=== PATIENT | female | born 1995 | race Two or more races ===

== ENCOUNTER 2022-02-04 19:19 | Outpatient (CLI) | payer OTHER ==
[~2022-02-04 19:19] MED LIST: ATABEX OB TABL1 EACH PO; MACROBID 100 M100 MG PO; PRENA1 TRUE CO1 EACH PO
== END 2022-02-05 09:10 | disposition home or self-care (01) ==
LOC: OBS/DEL 19:19
PROVIDERS: ATTEND Obstetrics & Gynecology
DX: O60.02 Preterm labor without delivery, second trimester (principal); Z3A.24 24 weeks gestation of pregnancy; Z91.013 Allergy to seafood; Z20.822 Contact with and (suspected) exposure to COVID-19

== ENCOUNTER 2022-02-17 00:58 | Outpatient (CLI) | payer OTHER | END 2022-02-17 11:25 | disposition home or self-care (01) | LOC: OBS/DEL 00:58 | PROVIDERS: ATTEND Obstetrics & Gynecology | DX: O26.892 Other specified pregnancy related conditions, second trimester (principal); Z3A.26 26 weeks gestation of pregnancy; Z91.013 Allergy to seafood ==

== ENCOUNTER 2022-03-27 13:39 | Outpatient (CLI) | payer OTHER | END 2022-03-27 15:00 | disposition home or self-care (01) | LOC: PRENATAL 13:39 | PROVIDERS: ATTEND Obstetrics & Gynecology Maternal & Fetal Medicine | DX: O26.849 Uterine size-date discrepancy, unspecified trimester (principal); O35.9XX0 Maternal care for (suspected) fetal abnormality and damage, unspecified, not applicable or unspecified; Z3A.32 32 weeks gestation of pregnancy ==

== ENCOUNTER → 2023-10-06 | Emergency (ER) | payer OTHER ==
[~2023-10-06] VITALS: Ht 154.9 cm; Wt 59.0 kg
[2023-10-06 16:56] LABS: HEMATOCRIT 38.6 % (36.0-45.00); HEMOGLOBIN 13.1 g/dL (12.0-15.00); MEAN CELL VOLUME 89.9 fL (80.00-100.00); MEAN CORPUSCULAR HEMOGLOBIN 30.6 pg (27.00-32.0); MEAN CORPUSCULAR HGB CONC 34.1 g/dl (32.0-36.0); PLATELET COUNT 342 K/uL (150-450); RED BLOOD COUNT 4.29 M/uL (4.00-6.00)
[2023-10-06 18:25] LABS: PH,URINE 6.5 (5.0-8.0); URINE APPEARANCE Clear; URINE BILIRRUBIN Negative (NEGATIVE); URINE BLOOD Large; URINE COLOR Yellow; URINE GLUCOSE Negative (NEGATIVE); URINE KETONE Negative (NEGATIVE); URINE LEUKOCYTE Trace; URINE NITRATE Negative; URINE PROTEIN Negative (NEGATIVE); URINE UROBILINOGEN 0.2 E.U./dl
[2023-10-06 18:26] LABS: URINE BACTERIA 259.4 uL (0.0-1933); URINE EPITHELIAL CELLS 26.1 uL (0.0-38.8); URINE RBC 64.7 uL (0.0-20.8); URINE WBC 4.1 uL (0.0-23.2)
== END | disposition home or self-care (01) ==
LOC: ER 15:36
PROVIDERS: General Practice
DX: O20.9 Hemorrhage in early pregnancy, unspecified (principal); Z3A.01 Less than 8 weeks gestation of pregnancy; Z91.013 Allergy to seafood; Z87.09 Personal history of other diseases of the respiratory system

== ENCOUNTER 2024-06-29 20:03 | Emergency (ER) | payer OTHER ==
[~2024-06-29] VITALS: Ht 154.9 cm; Wt 63.5 kg
[2024-06-29 21:16] LABS: HEMATOCRIT 33.7 % (36.0-45.00); HEMOGLOBIN 11.6 g/dL (12.0-15.00); MEAN CELL VOLUME 88.1 fL (80.00-100.00); MEAN CORPUSCULAR HEMOGLOBIN 30.4 pg (27.00-32.0); MEAN CORPUSCULAR HGB CONC 34.6 g/dl (32.0-36.0); PLATELET COUNT 312 K/uL (150-450); RED BLOOD COUNT 3.82 M/uL (4.00-6.00); RED CELL DISTRIBUTION WIDTH 13.8 % (11.5-14.5)
[2024-06-29 22:19] LABS: URINE APPEARANCE Clear; URINE BILIRRUBIN Negative (NEGATIVE); URINE BLOOD Small; URINE COLOR Yellow; URINE GLUCOSE Negative (NEGATIVE); URINE KETONE Negative (NEGATIVE); URINE LEUKOCYTE Negative; URINE NITRATE Negative; URINE PROTEIN Negative (NEGATIVE); URINE UROBILINOGEN 0.2 E.U./dl
[2024-06-29 22:31] LABS: URINE RBC 2.2 uL (0.0-20.8)
[2024-06-29 22:32] LABS: URINE BACTERIA 114.9 uL (0.0-1933); URINE EPITHELIAL CELLS 3.4 uL (0.0-38.8); URINE WBC 1.2 uL (0.0-23.2)
== END 2024-06-29 22:45 | disposition home or self-care (01) ==
LOC: ER 20:04
PROVIDERS: General Practice
DX: O20.8 Other hemorrhage in early pregnancy (principal); Z91.013 Allergy to seafood; Z3A.10 10 weeks gestation of pregnancy

== ENCOUNTER 2024-07-15 08:12 | Outpatient (CLI) | payer OTHER | END 2024-07-15 08:16 | disposition home or self-care (01) | LOC: PRENATAL 08:12 | PROVIDERS: ATTEND Obstetrics & Gynecology Maternal & Fetal Medicine | DX: O36.80X0 Pregnancy with inconclusive fetal viability, not applicable or unspecified (principal); Z36.82 Encounter for antenatal screening for nuchal translucency; O34.219 Maternal care for unspecified type scar from previous cesarean delivery; Z14.8 Genetic carrier of other disease; Z3A.13 13 weeks gestation of pregnancy ==

== ENCOUNTER 2024-07-26 12:02 | Emergency (ER) | payer OTHER ==
[~2024-07-26] VITALS: Ht 154.9 cm; Wt 63.0 kg
[2024-07-26] MEDS ORDERED: PRENATAL + DHA1 EAC1 (13:27)
[2024-07-26] MEDS ORDERED: KETOROLAC TROMETHAMINE 60 MG VIAL IM STA (14:22)
[2024-07-26] MEDS ORDERED: KETOROLAC TROMETHAMINE 60 MG VIAL IM ONE (15:06)
[2024-07-26 15:37] LABS: BASO % 0.3 % (0.1-1.2); EOS # 0.18 (0.04-0.54); HEMATOCRIT 32.8 % (34.1-44.9); LYMPH # 1.57 (1.18-3.74); LYMPH % 17.2 % (19.3-53.1); MEAN CORPUSCULAR HEMOGLOBIN 29.3 pg (25.6-32.2); MONO # 0.39 (0.24-0.82); MONO % 4.3 % (4.7-12.5); NEUT # 6.95 (1.56-6.13); PLATELET COUNT 307 K/uL (163-369); RED BLOOD COUNT 3.75 M/uL (3.93-5.22)
[2024-07-26 15:38] LABS: PH,URINE 6.5 (5.0-8.0); URINE APPEARANCE Clear; URINE BILIRRUBIN Negative (NEGATIVE); URINE BLOOD Negative; URINE COLOR Yellow; URINE GLUCOSE Negative (NEGATIVE); URINE KETONE Negative (NEGATIVE); URINE LEUKOCYTE Negative; URINE NITRATE Negative; URINE PROTEIN Negative (NEGATIVE); URINE UROBILINOGEN 0.2 E.U./dl
[2024-07-26 15:41] LABS: URINE BACTERIA 167.5 uL (0.0-1933); URINE EPITHELIAL CELLS 9.2 uL (0.0-38.8)
[2024-07-26 15:44] LABS: URINE RBC 0.2 uL (0.0-20.8); URINE WBC 0.3 uL (0.0-23.2)
[2024-07-26 15:59] LABS: POTASSIUM 3.62 mEq/L (3.5-5.1)
[2024-07-26 16:23] LABS: CALCIUM 8.6 mg/dL (8.5-10.1); CREATININE SERUM 0.35 mg/dL (0.55-1.02); GFR 217.19
== END 2024-07-26 17:20 | disposition home or self-care (01) ==
LOC: ER 12:02
PROVIDERS: General Practice
DX: O23.32 Infections of other parts of urinary tract in pregnancy, second trimester (principal); Z3A.14 14 weeks gestation of pregnancy; N39.0 Urinary tract infection, site not specified; Z91.013 Allergy to seafood

== ENCOUNTER → 2024-08-31 08:45 | Outpatient (CLI) | payer OTHER ==
[~2024-08-31 08:45] MED LIST changes: +PRENATAL + DHA1 EAC1
== END | disposition home or self-care (01) ==
LOC: PRENATAL 08:45
PROVIDERS: ATTEND Obstetrics & Gynecology Maternal & Fetal Medicine
DX: O44.00 Complete placenta previa NOS or without hemorrhage, unspecified trimester (principal); Z3A.20 20 weeks gestation of pregnancy

== ENCOUNTER → 2024-11-25 09:17 | Outpatient (CLI) | payer OTHER | END | disposition home or self-care (01) | LOC: PRENATAL 09:17 | PROVIDERS: ATTEND Obstetrics & Gynecology Maternal & Fetal Medicine | DX: O26.849 Uterine size-date discrepancy, unspecified trimester (principal); O36.8130 Decreased fetal movements, third trimester, not applicable or unspecified; O34.219 Maternal care for unspecified type scar from previous cesarean delivery; Z3A.34 34 weeks gestation of pregnancy ==

== ENCOUNTER 2024-12-30 08:49 | Inpatient (IN) | payer OTHER ==
[~2024-12-30] VITALS: Ht 154.9 cm; Wt 3.6 kg
[2024-12-30 09:22] LABS: BASO % 0.4 % (0.1-1.2); EOS # 0.14 (0.04-0.54); EOS % 2.0 % (0.7-7.0); LYMPH # 1.50 (1.18-3.74); LYMPH % 21.6 % (19.3-53.1); MEAN PLATELET VOLUME 10.90 fl (9.4-12.4); MONO # 0.42 (0.24-0.82); MONO % 6.0 % (4.7-12.5); NEUT # 4.85 (1.56-6.13); NEUT % 69.7 % (34.0-71.1); RED CELL DISTRIBUTION WIDTH 11.9 % (11.6-14.4)
[2024-12-30 09:47] LABS: URINE APPEARANCE Clear; URINE BILIRRUBIN Negative (NEGATIVE); URINE BLOOD Negative; URINE COLOR Yellow; URINE GLUCOSE Negative (NEGATIVE); URINE KETONE Negative (NEGATIVE); URINE LEUKOCYTE Trace; URINE NITRATE Negative; URINE PROTEIN Negative (NEGATIVE); URINE UROBILINOGEN 0.2 E.U./dl
[2024-12-30 09:53] LABS: URINE BACTERIA 333.5 uL (0.0-1933); URINE EPITHELIAL CELLS 33.6 uL (0.0-38.8); URINE RBC 2.0 uL (0.0-20.8); URINE WBC 7.2 uL (0.0-23.2)
[2024-12-30 09:56] LABS: INR < 0.93
[2024-12-30 10:05] LABS: URINE CAST 0.00 uL (0.0-1.40)
[2024-12-30 10:24] LABS: ALT/SGPT 26.0 U/L (12-78); AST/SGOT 25.0 U/L (15-37); BILIRUBIN TOTAL 0.35 mg/dL (0.3-1.2); BUN CREA RATIO 15.0 (7.0-25.0); CREATININE SERUM 0.4 mg/dL (0.55-1.02); GFR 186.17; GLOBULINA 3.4 G/DL (2.4-3.5); GLUCOSE FASTING 69.0 mg/dL (65-100); OSMOLALITY SERUM 275.0 MOSM/KG (275-295)
[2025-01-13 09:23] VITALS: BP 119/72
[2025-01-13] MEDS ORDERED: CEFAZOLIN SODIUM 1,000 MG VIAL ONE (09:48)
[2025-01-13 10:04] LABS: BASO % 0.5 % (0.1-1.2); EOS # 0.15 (0.04-0.54); EOS % 2.4 % (0.7-7.0); LYMPH # 1.34 (1.18-3.74); LYMPH % 21.2 % (19.3-53.1); MEAN PLATELET VOLUME 11.00 fl (9.4-12.4); MONO # 0.39 (0.24-0.82); MONO % 6.2 % (4.7-12.5); NEUT # 4.37 (1.56-6.13); NEUT % 69.2 % (34.0-71.1); RED CELL DISTRIBUTION WIDTH 11.9 % (11.6-14.4)
[2025-01-13 10:05] LABS: URINE APPEARANCE Clear; URINE BILIRRUBIN Negative (NEGATIVE); URINE BLOOD Negative; URINE COLOR Dark Yellow; URINE GLUCOSE Negative (NEGATIVE); URINE KETONE Trace (NEGATIVE); URINE LEUKOCYTE Negative; URINE NITRATE Negative; URINE PROTEIN Trace (NEGATIVE); URINE UROBILINOGEN 0.2 E.U./dl
[2025-01-13 10:06] LABS: URINE BACTERIA 634.7 uL (0.0-1933); URINE EPITHELIAL CELLS 20.4 uL (0.0-38.8); URINE RBC 2.1 uL (0.0-20.8); URINE WBC 8.1 uL (0.0-23.2)
[2025-01-13 10:20] LABS: URINE CAST 0.00 uL (0.0-1.40)
[2025-01-13 10:36] LABS: INR < 0.93
[2025-01-13 10:43] LABS: ALT/SGPT 25.0 U/L (12-78); AST/SGOT 23.0 U/L (15-37); BILIRUBIN TOTAL 0.29 mg/dL (0.3-1.2); BUN CREA RATIO 13.0 (7.0-25.0); CREATININE SERUM 0.45 mg/dL (0.55-1.02); GFR 162.51; GLOBULINA 3.3 G/DL (2.4-3.5); GLUCOSE FASTING 74.0 mg/dL (65-100); OSMOLALITY SERUM 276.0 MOSM/KG (275-295)
[2025-01-13] MEDS ORDERED: CEFAZOLIN SODIUM 1,000 MG VIAL IV SCH (12:45)
[2025-01-13] MEDS ORDERED: RINGERS SOLUTION,LACTATED 1,000 ML IV SCH ×2 (12:45→18:00)
[2025-01-13 15:20] VITALS: BP 111/70
[2025-01-13] MEDS ORDERED: ERYTHROMYCIN BASE OPHT 1GM EACH TUBE OP ONE (15:54)
[2025-01-13] MEDS ORDERED: OXYTOCIN 10 UNITS/ML VIAL ONE ×2 (15:54→19:22)
[2025-01-13] MEDS ORDERED: MORPHINE SULFATE 4 MG/ML VIAL IV PRN (17:45)
[2025-01-13] MEDS ORDERED: SIMETHICONE 125 MG CAPSULE PO SCH (18:00)
[2025-01-13] MEDS ORDERED: OXYTOCIN 1,000 ML IV SCH (18:00)
[2025-01-13 21:09] LABS: BASO % 0.2 % (0.1-1.2); EOS # 0.04 (0.04-0.54); EOS % 0.3 % (0.7-7.0); LYMPH # 1.10 (1.18-3.74); LYMPH % 7.9 % (19.3-53.1); MEAN PLATELET VOLUME 11.20 fl (9.4-12.4); MONO # 0.63 (0.24-0.82); MONO % 4.5 % (4.7-12.5); NEUT # 12.05 (1.56-6.13); NEUT % 86.8 % (34.0-71.1); RED CELL DISTRIBUTION WIDTH 11.9 % (11.6-14.4)
[2025-01-13 22:13] VITALS: BP 112/70
[2025-01-14] VITALS: BP 136/80
[2025-01-14 04:30] VITALS: BP 120/73
[2025-01-14] MEDS ORDERED: DOCUSATE SODIUM 100MG CAP PO SCH (09:00)
[2025-01-14 09:04] VITALS: BP 135/80
[2025-01-14] MEDS ORDERED: BISACODYL 10 MG/SUPP.RECT SUPP.RECT RECTAL STA (11:32)
[2025-01-14 17:30] VITALS: BP 126/80
[2025-01-14] MEDS ORDERED: OxyCODONE HCL 5 MG TABLET (ROXICODONE) PO PRN (21:00)
[2025-01-14] MEDS ORDERED: ACETAMINOPHEN 325 MG TABLET PO PRN (21:00)
[2025-01-15] VITALS: BP 135/83
[2025-01-15 08:58] VITALS: BP 128/82
[2025-01-15 15:00] VITALS: BP 109/73
[2025-01-16] VITALS: BP 104/64
[2025-01-16 08:27] VITALS: BP 114/76
== END 2025-01-16 15:08 | disposition home or self-care (01) | DRG 788 ==
LOC: LDR 01-13 08:01 → O/R 01-13 16:20 → OB/GYN 01-13 17:48
PROVIDERS: ADMIT Obstetrics & Gynecology; ATTEND Obstetrics & Gynecology
PROC: 4A1HXCZ Monitoring of Products of Conception, Cardiac Rate, External Approach (ICD-10-PCS; 2025-01-13)
PROC: 10D00Z1 Extraction of Products of Conception, Low, Open Approach (ICD-10-PCS; principal; 2025-01-13 19:00)
DX: O34.211 Maternal care for low transverse scar from previous cesarean delivery (principal); Z3A.39 39 weeks gestation of pregnancy; Z37.0 Single live birth